=== PATIENT | female | born 1990 | race American Indian/Alaskan Native ===

== ENCOUNTER 2020-12-03 09:56 | Emergency (ER) | payer SELFPAY ==
[2020-12-03] MEDS ORDERED: ONDANSETRON 4 MG ODT TAB PO ONE (11:32)
[2020-12-03] MEDS ORDERED: ACETAMINOPHEN 325 MG TAB PO ONE (11:32)
[2020-12-03] MEDS ORDERED: dexAMETHasone 20 MG/5 ML VIAL IM ONE (11:34)
[2020-12-03] MEDS ORDERED: IPRATROPIUM/ALBUTEROL SULFATE 3 ML AMPUL.NEB IH ONE (11:34)
--- NOTE | 2020-12-03 11:57 | XRay Report ---
CHEST 2 VIEWS INDICATION / CLINICAL INFORMATION: fever, cough, SOB, wheezing. COMPARISON: None available. FINDINGS: SUPPORT DEVICES: None. HEART / MEDIASTINUM: No significant abnormality. LUNGS / PLEURA: No significant pulmonary or pleural abnormality. No pneumothorax. ADDITIONAL FINDINGS: No significant additional findings. IMPRESSION: 1. No acute findings. Signer Name: Blaise Alonso MD Signed: 12/03/2020 11:53 AM Workstation Name: [id number]
--- NOTE | 2020-12-03 12:07 | Emergency Department Report ---
- General Chief Complaint: Dyspnea/Respdistress Stated Complaint: COUGH/CHEST PAIN/HEADACHE Time Seen by Provider: 12/03/20 11:31 Source: patient Mode of arrival: Ambulatory Limitations: No Limitations - History of Present Illness Initial Comments: Patient is a 30-year-old female presents emergency room with complaints of URI symptoms that began a few days ago. She has associated cough, shortness of breath, wheezing, chest tightness, headache, body aches, chills, diarrhea, subjective fever. Patient denies any vomiting, abdominal pain, urinary symptoms, leg swelling. Patient has a past medical history of asthma and anemia. She reports that she has not had to use an inhaler since she was approximately 14 years old. Patient is a smoker. She has an allergy to iodine. Patient states that she had a tubal ligation and denies any possibility of . - Related Data Previous Rx's Medication Instructions Recorded Last Taken Type Albuterol Sulfate [Proventil Hfa] 1 - 2 puff IH TID PRN #1 hfa.aer.ad 12/03/20 Unknown Rx guaiFENesin ER [Mucinex ER] 600 mg PO Q12H #14 tablet.er 12/03/20 Unknown Rx predniSONE [Deltasone] 40 mg PO QDAY 5 Days #10 tab 12/03/20 Unknown Rx Allergies Allergy/AdvReac Type Severity Reaction Status Date / Time iodine Allergy Hives Verified 12/03/20 10:13 ED Review of Systems ROS: Stated complaint: COUGH/CHEST PAIN/HEADACHE Other details as noted in HPI Comment: All other systems reviewed and negative ED Past Medical Hx - Past Medical History Hx Sickle Cell Disease: Yes - Surgical History Additional Surgical History: HERNIA/ C SECTION - Medications Home Medications: Home Medications Medication Instructions Recorded Confirmed Last Taken Type Albuterol Sulfate [Proventil Hfa] 1 - 2 puff IH TID PRN #1 hfa.aer.ad 12/03/20 Unknown Rx guaiFENesin ER [Mucinex ER] 600 mg PO Q12H #14 tablet.er 12/03/20 Unknown Rx predniSONE [Deltasone] 40 mg PO QDAY 5 Days #10 tab 12/03/20 Unknown Rx ED Physical Exam - General Limitations: No Limitations General appearance: alert, in no apparent distress - Head Head exam: Present: atraumatic, normocephalic - Eye Eye exam: Present: normal appearance - ENT ENT exam: Present: normal orophraynx, mucous membranes moist, TM's normal bilaterally, normal external ear exam - Respiratory Respiratory exam: Present: wheezes, rhonchi, prolonged expiratory. Absent: respiratory distress, rales, stridor, chest wall tenderness, accessory muscle use, decreased breath sounds - Cardiovascular Cardiovascular Exam: Present: regular rate, normal rhythm, normal heart sounds. Absent: systolic murmur, diastolic murmur, rubs, gallop - Neurological Exam Neurological exam: Present: alert, oriented X3 - Psychiatric Psychiatric exam: Present: normal affect, normal mood - Skin Skin exam: Present: warm, dry, intact ED Course Vital Signs 12/03/20 12/03/20 10:08 13:13 Temperature 98.4 F Pulse Rate 96 H 81 Respiratory 20 Rate Blood Pressure 155/100 Blood Pressure 118/83 [Left] O2 Sat by Pulse 94 99 Oximetry ED Medical Decision Making - Lab Data Vital Signs 12/03/20 12/03/20 10:08 13:13 Temperature 98.4 F Pulse Rate 96 H 81 Respiratory 20 Rate Blood Pressure 155/100 Blood Pressure 118/83 [Left] O2 Sat by Pulse 94 99 Oximetry - Radiology Data Radiology results: report reviewed Ordering Physician: MICHELLE VENTURA Date of Service: 12/03/20 Procedure(s): XR chest routine 2V Accession Number(s): [id number] cc: MICHELLE VENTURA Fluoro Time In Minutes: CHEST 2 VIEWS INDICATION / CLINICAL INFORMATION: fever, cough, SOB, wheezing. COMPARISON: None available. FINDINGS: SUPPORT DEVICES: None. HEART / MEDIASTINUM: No significant abnormality. LUNGS / PLEURA: No significant pulmonary or pleural abnormality. No pneumothorax. ADDITIONAL FINDINGS: No significant additional findings. IMPRESSION: 1. No acute findings. Signer Name: Blaise Alonso MD Signed: 12/03/2020 11:53 AM Workstation Name: [id number] Transcribed By: TL Dictated By: Blaise Alonso MD Electronically Authenticated By: Blaise Alonso MD Signed Date/Time: 12/03/20 1153 DD/ 1152 TD/TT: - Medical Decision Making Patient is a 30-year-old female presents emergency room with complaints of URI symptoms that began a few days ago. She has associated cough, shortness of breath, wheezing, chest tightness, headache, body aches, chills, diarrhea, subjective fever. Patient denies any vomiting, abdominal pain, urinary symptoms, leg swelling. Patient has a past medical history of asthma and anemia. She reports that she has not had to use an inhaler since she was approximately 14 years old. Patient is a smoker. She has an allergy to iodine. Patient states that she had a tubal ligation and denies any possibility of . Vitals are stable. Patient is able to maintain oxygen saturation of 94% or higher on room air. On exam patient has wheezing and rhonchi throughout, no respiratory distress, no accessory muscle use. Chest x-ray: 1. No acute findings. Symptoms likely related to URI and asthma exacerbation versus acute bronchitis. Patient given prescription for medications. No clinical signs of bacterial pneumonia. Patient is presenting with the symptoms during COVID-19 pandemic, discussed the possibility of COVID-19 with patient, discussed return precautions, discussed outpatient testing, discussed self quarantine. Advised patient Please take medication as prescribed. Please increase your fluid intake over the next several days. May take Tylenol as needed for fever or body aches. May take wqvh-gvs-chgeuwd cold symptom relief medication such as Mucinex or TheraFlu. Get plenty of rest. Follow-up with a primary care doctor for reexamination. Return to emergency room immediately for any new or worsening symptoms including but not limited to difficulty breathing, shortness of breath, severe chest pain, unable to tolerate by mouth intake, etc. Please self quarantine for 10 days from the onset of your symptoms. Please do not go out in public. If you are around others at home please wear a mask. If you need to cough or sneeze please do so in a napkin and immediately throw it away and immediately wash your hands. Wash your hands frequently. Wipe everything down. Recommend for you to get COVID-19 testing, may have this done at primary care doctor, health department, [facility] or [facility] drive-through testing centers. Critical care attestation.: If time is entered above; I have spent that time in minutes in the direct care of this critically ill patient, excluding procedure time. ED Disposition Clinical Impression: URI (upper respiratory infection) Qualifiers: URI type: unspecified URI Qualified Code(s): J06.9 - Acute upper respiratory infection, unspecified Asthma exacerbation Qualifiers: Asthma severity: unspecified severity Asthma persistence: unspecified Qualified Code(s): J45.901 - Unspecified asthma with (acute) exacerbation Disposition: 01 HOME / SELF CARE / HOMELESS Is pt being admited?: No Does the pt Need Aspirin: No Condition: Stable Instructions: Asthma, Adult, Viral Respiratory Infection Additional Instructions: Please take medication as prescribed. Please increase your fluid intake over the next several days. May take Tylenol as needed for fever or body aches. May take wzqh-rfp-suuppec cold symptom relief medication such as Mucinex or TheraFlu. Get plenty of rest. Follow-up with a primary care doctor for reexamination. Return to emergency room immediately for any new or worsening symptoms including but not limited to difficulty breathing, shortness of breath, severe chest pain, unable to tolerate by mouth intake, etc. Please self quarantine for 10 days from the onset of your symptoms. Please do not go out in public. If you are around others at home please wear a mask. If you need to cough or sneeze please do so in a napkin and immediately throw it away and i mmediately wash your hands. Wash your hands frequently. Wipe everything down. Recommend for you to get COVID-19 testing, may have this done at primary care doctor, health department, [facility] or [employer] drive-through testing centers. Prescriptions: predniSONE [Deltasone] 40 mg PO QDAY 5 Days #10 tab guaiFENesin ER [Mucinex ER] 600 mg PO Q12H #14 tablet.er Albuterol Sulfate [Proventil Hfa] 1 - 2 puff IH TID PRN #1 hfa.aer.ad PRN Reason: shortness of breath/wheezing Referrals: JAG HANNAH MD [Staff Physician] - 2-3 Days [facility] [Provider Group] - 2-3 Days Time of Disposition: 13:01 Print Language: NEPALI
[2020-12-03 13:13] VITALS: BP 118/83
== END 2020-12-03 13:45 | disposition home or self-care (01) ==
LOC: ED 09:56
DX: J06.9 Acute upper respiratory infection, unspecified (principal); J45.901 Unspecified asthma with (acute) exacerbation; Z98.890 Other specified postprocedural states; Z88.6 Allergy status to analgesic agent; Z79.899 Other long term (current) drug therapy
CPT/HCPCS: 71046; 94640; 96372; 99283; J1100; Q0162